=== PATIENT | male | born 1925 | race Caucasian/White ===

== ENCOUNTER → 2016-07-29 | Outpatient (CLI) | payer MEDICARE, OTHER ==
--- NOTE | 2016-07-29 13:41 | HKNOTE ---
DATE OF SERVICE: 07/29/2016 INTERVAL HISTORY: The patient presents today for a postoperative evaluation on his left hip. He is approximately 3 weeks status post left hip bipolar hemiarthroplasty. He is doing satisfactory overall. He is at the [facility]. He denies any fevers, chills, pus or drainage. He states he is doing physical therapy at the [facility] and progressing nicely. He is able to ambulate with a front-wheeled walker. He presents today for evaluation. PHYSICAL EXAMINATION: Today, he is alert and oriented x4 and in no acute distress. He is ambulatory with a front-wheel walker. Exam of the incision demonstrates it to be clean, dry, and intact. [place] are in place. There is no pus or drainage noted. There is no erythema or warmth noted. He has minimal pain with passive range of motion of the left hip joint. There is no significant soft tissue swelling. Compartments are soft. Homans sign is negative. He is neurovascularly intact distally. IMAGING: X-rays done at outside facility were reviewed by me today. They demonstrate anatomic alignment of the hemiarthroplasty. There is no fracture or dislocation identified. ASSESSMENT: Three weeks status post left hip bipolar hemiarthroplasty. PLAN: The asa were removed today. He is to continue appropriate DVT prophylaxis. Additionally, he is to continue physical therapy at the [facility]. He is to ambulate with a front-wheeled walker at all times. He is weightbearing as tolerated on the surgical lower extremity. We will see him back in 4 weeks for repeat evaluation. If the patient has any concerns in the meantime, he will go ahead and call the office. Dictated By: MELI ALTAMIRANO for FRANSICO MAYA/MIKE Conf#: [id number] DID#: [id number] CECY
== END | disposition home or self-care (01) ==
LOC: HKI 10:43
PROVIDERS: ATTEND Orthopaedic Surgery
DX: Z47.1 Aftercare following joint replacement surgery (principal); Z96.642 Presence of left artificial hip joint

== ENCOUNTER → 2016-08-28 | Outpatient (CLI) | payer MEDICARE, OTHER | END | disposition home or self-care (01) | LOC: HKI 13:35 | PROVIDERS: ATTEND Orthopaedic Surgery | DX: Z47.1 Aftercare following joint replacement surgery (principal); Z96.642 Presence of left artificial hip joint; Z95.2 Presence of prosthetic heart valve ==

== ENCOUNTER → 2016-10-09 | Outpatient (CLI) | payer MEDICARE, OTHER ==
--- NOTE | 2016-10-09 15:54 | RADRPT ---
PROCEDURE: XR LEFT HIP. CLINICAL INDICATION: Left hip pain TECHNIQUE: 3 views of the left hip were performed. COMPARISON: None. FINDINGS: The patient is status post bipolar hemiarthroplasty. No evidence for migration or fracture of the p rosthesis. The bones are osteoporotic. No evidence for osseous fracture. No osteolysis changes ar e seen. Atherosclerotic changes are seen. IMPRESSION: 1. Appropriate appearance to bipolar hemiarthroplasty. 2. No evidence for fracture or bone destructive change. 3. Atherosclerosis. 4. Osteoporosis. RPTAT: XX .Ever Colin MD, MD Date Time Electronically viewed and signed by .Ever Colin MD, on 10/09/2016 15:54 .T/
== END | disposition home or self-care (01) ==
LOC: HKI 10:51
PROVIDERS: ATTEND Orthopaedic Surgery
DX: S72.032D Displaced midcervical fracture of left femur, subsequent encounter for closed fracture with routine healing (principal); X58.XXXD Exposure to other specified factors, subsequent encounter; Z09 Encounter for follow-up examination after completed treatment for conditions other than malignant neoplasm; Z96.642 Presence of left artificial hip joint
CPT/HCPCS: 73502